=== PATIENT | female | born 2005 | race Caucasian/White ===

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

== ENCOUNTER 2023-03-29 14:49 | Emergency (ER) | payer SELFPAY | END 2023-03-29 15:27 | disposition home or self-care (01) | LOC: MW.ED 14:49 | DX: L02.413 Cutaneous abscess of right upper limb (principal); Z79.899 Other long term (current) drug therapy | CPT/HCPCS: 10060; 99282; 99283 ==

== ENCOUNTER 2024-08-07 01:02 | Emergency (ER) | payer BC ==
[2024-08-07] MEDS: Lidocaine 1% with EPINEPHrine 1:100,000 10 ML MDV INJECT ONE (03:11)
[2024-08-07] MEDS: Bupivacaine 0.5% 10 ML SDV INJECT ONE (03:11)
[2024-08-07] MEDS: Diphtheria,Pertussis(Acell),Tetanus Vaccine 0.5 ML Syringe IM ONE (04:37)
== END 2024-08-07 04:40 | disposition home or self-care (01) ==
LOC: MW.ED 01:02
DX: S41.122A Laceration with foreign body of left upper arm, initial encounter (principal); Z79.899 Other long term (current) drug therapy; Z86.16 Personal history of COVID-19; Z23 Encounter for immunization; W25.XXXA Contact with sharp glass, initial encounter; Y93.89 Activity, other specified
CPT/HCPCS: 12004; 73090; 90471; 90715; 99283; J0665

== ENCOUNTER 2024-09-16 02:24 | Emergency (ER) | payer BC ==
[2024-09-16] MEDS: Famotidine 20 MG/2 ML SDV IVPUSH ONE (02:49)
[2024-09-16] MEDS: Sodium Chloride 0.9% 1,000 ML IV SCH (02:49)
[2024-09-16] MEDS: Ketorolac 30 MG/ML SDV IVPUSH ONE (02:49)
[2024-09-16] MEDS: Ondansetron 4 MG/2 ML SDV IVPUSH ONE (02:49)
== END 2024-09-16 03:42 | disposition home or self-care (01) ==
LOC: MW.ED 02:24
DX: F10.120 Alcohol abuse with intoxication, uncomplicated (principal); F17.200 Nicotine dependence, unspecified, uncomplicated; Z79.899 Other long term (current) drug therapy
CPT/HCPCS: 96361; 96374; 96375; 99283; J1885; J2405; J7030; 99282

== ENCOUNTER 2025-02-18 20:21 | Observation (INO) | payer BC ==
[2025-02-18] MEDS ORDERED: Sodium Chloride 0.9% 2.5 ML Syringe FLUSH PRN (20:51)
[2025-02-18] MEDS ORDERED: Sodium Chloride 0.9% 10 ML Syringe FLUSH PRN (20:51)
[2025-02-18] MEDS: LORazepam 2 MG/ML SDV IM ONE (20:57)
[2025-02-18 21:24] LABS: MEAN PLATELET VOLUME 10.8 fL (9.4-12.3); NRBC ABSOLUTE 0.00 K/uL (0.00-0.02); NRBC PERCENT 0.0 /100WBC (0.0-0.2); PLATELET COUNT,PLT 311 K/uL (150-400); RED BLOOD CELL COUNT 4.42 M/uL (4.10-5.30); WHITE BLOOD CELL COUNT,WBC 19.58 K/uL (3.9-11.3)
[2025-02-18 21:31] LABS: BASE EXCESS VENOUS -2.3 (-2.0-3.0); BICARBONATE,VENOUS 23.0 mEq/L (22-29); PCO2 VENOUS 38.0 mmHG (41-51); PH,VENOUS 7.38 (7.32-7.43); PO2 VENOUS 58.0 mmHG (35-45)
[2025-02-18 21:56] LABS: A/G RATIO 1.2 (0.9-1.6); ALANINE AMINOTRANSFERASE,ALT 36 IU/L (14-63); ASPARTATE AMNIOTRANSFERASE,AST 35 IU/L (15-37); BILIRUBIN TOTAL 0.3 mg/dL (0.2-1.0); BLOOD UREA NITROGEN,BUN 13 mg/dL (7.0-18.0); CARBON DIOXIDE,CO2 24.2 mmol/L (21.0-32.0); CHLORIDE,CL 101 mmol/L (98-107); CREATININE 1.4 mg/dL (0.6-1.0); EST CRCL DRUG DOSING (CG) 56.90 mL/min; ETHANOL BLOOD MEDICAL <3 mg/dL; GLUCOSE RANDOM 71 mg/dL (74-106); POTASSIUM,K 3.3 mmol/L (3.5-5.1); PRO B-TYPE NATRIUR PEPT,BNPPRO 29 pg/mL (0-125); PROTEIN TOTAL,TP 7.8 g/dL (6.4-8.2); SODIUM,NA 139 mmol/L (136-145)
[2025-02-18 21:59] LABS: ESTIMATED GFR 55 mL/min (>60)
[2025-02-18 22:10] LABS: APPEARANCE,URINE CLEAR; GLUCOSE,URINE NEGATIVE (NEGATIVE); OCCULT BLOOD,URINE NEGATIVE (NEGATIVE)
[2025-02-18 22:17] LABS: SQUAMOUS EPITHELIAL CELLS,UR FEW
[2025-02-18 22:20] LABS: AMPHETAMINES SCREEN, URINE PRESUMPTIVE POSITIVE (CUTOFF=500); BUPRENORPHINE SCREEN,URINE NEGATIVE (CUTOFF=10); METHADONE SCREEN, URINE NEGATIVE (CUTOFF=200); METHAMPHETAMINES SCREEN, URINE PRESUMPTIVE POSITIVE (CUTOFF=500); OXYCODONE SCREEN,URINE NEGATIVE (CUT0FF=100); PCP SCREEN,URINE NEGATIVE (CUTOFF=25); THC SCREEN,URINE 20 NG/ML NEGATIVE (CUTOFF=50)
[2025-02-18] MEDS: Naloxone 0.4 MG/ML SDV IVPUSH ONE (22:46)
[2025-02-18] MEDS ORDERED: Ondansetron 4 MG/2 ML SDV IVPUSH ONE (22:51)
[2025-02-18 22:59] LABS: LYMPHOCYTES ABSOLUTE MAN 2.15 K/uL (1.00-4.80); LYMPHOCYTES PERCENT MAN 11 % (24-44); MONOCYTES ABSOLUTE MAN 1.37 K/uL (0.00-0.80); MONOCYTES PERCENT MAN 7 % (0-8); SEG NEUTROPHILS ABSOLUTE MAN 16.06 K/uL (1.80-7.70); SEG NEUTROPHILS PERCENT MAN 82 % (41-71)
[2025-02-18 23:04] LABS: BASE EXCESS VENOUS -1.3 (-2.0-3.0); BICARBONATE,VENOUS 24.0 mEq/L (22-29); PCO2 VENOUS 43.0 mmHG (41-51); PH,VENOUS 7.36 (7.32-7.43); PO2 VENOUS 34.0 mmHG (35-45)
[2025-02-18] MEDS: Ondansetron 4 MG/2 ML SDV IVPUSH ONE (23:06)
[2025-02-18] MEDS: Ketorolac 30 MG/ML SDV IVPUSH ONE (23:06)
[2025-02-18] MEDS ORDERED: Naloxone 0.4 MG/ML SDV IVPUSH PRN (23:50)
[2025-02-19] MEDS: droPERidol 2.5 MG/ML SDV IVPUSH ONE ×2 (00:06→03:44)
[2025-02-19] MEDS: Pantoprazole 40 MG in Sodium Chloride 0.9% 10 ML IVPUSH ONE (00:10)
[2025-02-19] MEDS: Nitrofurantoin Monohydrate/Macrocrystalline 100 MG Cap PO ONE (01:24)
[2025-02-19] MEDS ORDERED: Ondansetron 4 MG/2 ML SDV IVPUSH PRN (03:27)
[2025-02-19 06:07] LABS: BASOPHILS ABSOLUTE AUTO 0.02 K/uL (0.00-0.20); BASOPHILS PERCENT AUTO 0.1 % (0.0-1.0); EOSINOPHILS ABSOLUTE AUTO 0.02 K/uL (0.00-0.45); EOSINOPHILS PERCENT AUTO 0.1 % (0.0-6.0); IMMATURE GRAN ABSOLUTE AUTO 0.04 K/uL (0.00-0.05); IMMATURE GRAN PERCENT AUTO 0.3 % (0.0-0.4); LYMPHOCYTES ABSOLUTE AUTO 1.97 K/uL (1.00-4.80); LYMPHOCYTES PERCENT AUTO 14.5 % (24.0-44.0); MEAN PLATELET VOLUME 11.0 fL (9.4-12.3); MONOCYTES ABSOLUTE AUTO 0.98 K/uL (0.00-0.80); MONOCYTES PERCENT AUTO 7.2 % (0.0-8.0); NEUTROPHILS ABSOLUTE AUTO 10.59 K/uL (1.80-7.70); NEUTROPHILS PERCENT AUTO 77.8 % (41.0-71.0); NRBC ABSOLUTE 0.00 K/uL (0.00-0.02); NRBC PERCENT 0.0 /100WBC (0.0-0.2); PLATELET COUNT,PLT 231 K/uL (150-400); RED BLOOD CELL COUNT 4.07 M/uL (4.10-5.30); WHITE BLOOD CELL COUNT,WBC 13.62 K/uL (3.9-11.3)
[2025-02-19 06:36] LABS: A/G RATIO 1.1 (0.9-1.6); ALANINE AMINOTRANSFERASE,ALT 34.0 IU/L (14-63); ASPARTATE AMNIOTRANSFERASE,AST 48.0 IU/L (15-37); BILIRUBIN TOTAL 0.6 mg/dL (0.2-1.0); BLOOD UREA NITROGEN,BUN 10.0 mg/dL (7.0-18.0); CARBON DIOXIDE,CO2 26.6 mmol/L (21.0-32.0); CHLORIDE,CL 104.0 mmol/L (98-107); CREATININE 1.1 mg/dL (0.6-1.0); EST CRCL DRUG DOSING (CG) 72.41 mL/min; GLUCOSE RANDOM 139.0 mg/dL (74-106); POTASSIUM,K 4.2 mmol/L (3.5-5.1); PROTEIN TOTAL,TP 6.2 g/dL (6.4-8.2); SODIUM,NA 138.0 mmol/L (136-145)
[2025-02-19 06:37] LABS: ESTIMATED GFR 73.0 mL/min (>60)
== END 2025-02-19 13:00 | disposition home or self-care (01) ==
LOC: MW.ED 20:21 → MW.MS 02-19 01:43
PROVIDERS: ADMIT Family Medicine; ATTEND Family Medicine
DX: R79.89 Other specified abnormal findings of blood chemistry (principal); F31.9 Bipolar disorder, unspecified; Z91.013 Allergy to seafood; Z79.899 Other long term (current) drug therapy
CPT/HCPCS: 36415; 71045; 71045-26; 80053; 80143; 80179; 80305; 80307; 81001; 82803; 83880; 84484; 85025; 85652; 86140; 93005; 93010; 93306; 96361; 96372; 96374; 96375; 99285; 99285-25; A9270-GY; G0378; J1790; J1885; J2060; J2312; J2405; J2470; J7030

== ENCOUNTER 2025-02-19 17:21 | Emergency (ER) | payer BC ==
[2025-02-19] MEDS: LORazepam 2 MG/ML SDV IVPUSH ONE (17:41)
[2025-02-19 17:47] LABS: BASOPHILS ABSOLUTE AUTO 0.03 K/uL (0.00-0.20); BASOPHILS PERCENT AUTO 0.2 % (0.0-1.0); EOSINOPHILS ABSOLUTE AUTO 0.19 K/uL (0.00-0.45); EOSINOPHILS PERCENT AUTO 1.3 % (0.0-6.0); IMMATURE GRAN ABSOLUTE AUTO 0.04 K/uL (0.00-0.05); IMMATURE GRAN PERCENT AUTO 0.3 % (0.0-0.4); LYMPHOCYTES ABSOLUTE AUTO 3.77 K/uL (1.00-4.80); LYMPHOCYTES PERCENT AUTO 26.4 % (24.0-44.0); MEAN PLATELET VOLUME 11.1 fL (9.4-12.3); MONOCYTES ABSOLUTE AUTO 1.13 K/uL (0.00-0.80); MONOCYTES PERCENT AUTO 7.9 % (0.0-8.0); NEUTROPHILS ABSOLUTE AUTO 9.12 K/uL (1.80-7.70); NEUTROPHILS PERCENT AUTO 63.9 % (41.0-71.0); NRBC ABSOLUTE 0.00 K/uL (0.00-0.02); NRBC PERCENT 0.0 /100WBC (0.0-0.2); PLATELET COUNT,PLT 240 K/uL (150-400); RED BLOOD CELL COUNT 4.19 M/uL (4.10-5.30); WHITE BLOOD CELL COUNT,WBC 14.28 K/uL (3.9-11.3)
[2025-02-19] MEDS: Etomidate 2 MG/ML 20 ML SDV IVPUSH STA (17:59)
[2025-02-19] MEDS: Rocuronium 100 MG/10 ML MDV IVPUSH STA (18:00)
[2025-02-19] MEDS: fentaNYL 100 MCG/2 ML SDV ONE (18:19)
[2025-02-19 18:24] LABS: A/G RATIO 1.2 (0.9-1.6); ALANINE AMINOTRANSFERASE,ALT 45 IU/L (14-63); ASPARTATE AMNIOTRANSFERASE,AST 66 IU/L (15-37); BILIRUBIN TOTAL 0.6 mg/dL (0.2-1.0); BLOOD UREA NITROGEN,BUN 15 mg/dL (7.0-18.0); CARBON DIOXIDE,CO2 24.0 mmol/L (21.0-32.0); CHLORIDE,CL 104 mmol/L (98-107); CREATININE 1.2 mg/dL (0.6-1.0); ETHANOL BLOOD MEDICAL <3 mg/dL; GLUCOSE RANDOM 94 mg/dL (74-106); POTASSIUM,K 3.4 mmol/L (3.5-5.1); PROTEIN TOTAL,TP 6.5 g/dL (6.4-8.2); SODIUM,NA 139 mmol/L (136-145); TSH ULTRASENSITIVE 3.63 uIU/mL (0.36-3.74)
[2025-02-19] MEDS: Ondansetron 4 MG/2 ML SDV ONE (18:26)
[2025-02-19] MEDS: propofoL 1,000 MG/100 ML 100 ML IV SCH (18:27)
[2025-02-19] MEDS: propofoL 1,000 MG/100 ML 100 ML ONE (18:27)
[2025-02-19] MEDS: Midazolam HCl In 0.9 % NaCl/Pf 100 ML IV SCH (18:30)
[2025-02-19 18:31] LABS: ESTIMATED GFR 66 mL/min (>60)
[2025-02-19] MEDS: Ondansetron 4 MG/2 ML SDV IVPUSH STA (18:31)
[2025-02-19 18:40] LABS: APPEARANCE,URINE CLEAR; GLUCOSE,URINE NEGATIVE (NEGATIVE); OCCULT BLOOD,URINE NEGATIVE (NEGATIVE)
[2025-02-19 18:50] LABS: AMPHETAMINES SCREEN, URINE PRESUMPTIVE POSITIVE (CUTOFF=500); BUPRENORPHINE SCREEN,URINE NEGATIVE (CUTOFF=10); METHADONE SCREEN, URINE NEGATIVE (CUTOFF=200); METHAMPHETAMINES SCREEN, URINE PRESUMPTIVE POSITIVE (CUTOFF=500); OXYCODONE SCREEN,URINE NEGATIVE (CUT0FF=100); PCP SCREEN,URINE NEGATIVE (CUTOFF=25); THC SCREEN,URINE 20 NG/ML NEGATIVE (CUTOFF=50)
[2025-02-19 18:56] LABS: EPITHELIAL CELLS,URINE RARE (NONE-FEW)
[2025-02-19] MEDS: Iopamidol 755 Mg/ML 100 ML Bottle IVPUSH ONE (19:07)
[2025-02-19] MEDS: Propofol 200 MG/20 ML SDV IVPUSH ONE ×2 (19:18→19:19)
[2025-02-19] MEDS: cefTRIAXone 2 GM in Water For Injection, Sterile 20 ML IVPUSH ONE (19:35)
[2025-02-19] MEDS: Naloxone 0.4 MG/ML SDV IVPUSH ONE (19:38)
== END 2025-02-19 19:52 ==
LOC: MW.ED 17:21
DX: T40.412A Poisoning by fentanyl or fentanyl analogs, intentional self-harm, initial encounter (principal); T71.192A Asphyxiation due to mechanical threat to breathing due to other causes, intentional self-harm, initial encounter; J69.0 Pneumonitis due to inhalation of food and vomit; J96.00 Acute respiratory failure, unspecified whether with hypoxia or hypercapnia; Z79.899 Other long term (current) drug therapy; F19.20 Other psychoactive substance dependence, uncomplicated; Z91.013 Allergy to seafood; Z99.11 Dependence on respirator [ventilator] status; Z86.59 Personal history of other mental and behavioral disorders
CPT/HCPCS: 31500; 36415; 51702; 70450; 70496; 70498; 71045; 71260; 72125; 74177; 80053; 80143; 80179; 80305; 80307; 81001; 83735; 84443; 85025; 93005; 96361; 96365; 96366; 96368; 96375; 99291; 99292; A4216; J0696; J2060; J2251; J2312; J2405; J2704; J3490; J7030; Q9967; 93010; 99285